=== PATIENT | female | born 1925 | race Caucasian/White ===

== ENCOUNTER 2017-08-31 10:28 | Emergency (ER) | payer OTHER ==
[~2017-08-31] VITALS: Ht 165.1 cm; Wt 72.6 kg
[~2017-08-31 10:28] MED LIST: ASPIR 8181 MG PO; BYSTOLIC5 MG PO; LISINOPRIL40 MG PO; LORAZEPAM0.5 MG PO; OMEPRAZOLE20 M1 PO; SERTRALINE HCL25 MG PO; TEKTURNA PO; TEKTURNA150 MG PO
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
[2017-08-31] MEDS ORDERED: BUPIVACAINE HCL 0.5% INJ 30 ML VIAL INJ ONE (11:30)
[2017-08-31] MEDS ORDERED: TRIAMCINOLONE ACET 40 MG/ML VIAL IM ONE (11:30)
[2017-08-31 12:14] VITALS: BP 192/81
[2017-08-31] MEDS ORDERED: CLONIDINE HCL 0.1 MG TAB PO SCH (12:30)
== END 2017-08-31 13:55 | disposition home or self-care (01) ==
LOC: ER 10:28
DX: M25.552 Pain in left hip (principal); M70.72 Other bursitis of hip, left hip; M54.42 Lumbago with sciatica, left side; M25.562 Pain in left knee; M79.662 Pain in left lower leg; M25.572 Pain in left ankle and joints of left foot; S39.012A Strain of muscle, fascia and tendon of lower back, initial encounter; I10 Essential (primary) hypertension
CPT/HCPCS: 99282; J3301